=== PATIENT | male | born 1980 | race Caucasian/White ===

== ENCOUNTER 2016-10-03 17:58 | Inpatient (IN) | payer OTHER ==
[~2016-10-03] VITALS: Ht 175.3 cm; Wt 71.5 kg
[~2016-10-03 17:58] MED LIST: BLOOTES; CITA40 PO; CLON1 PO; LEVEMIR SQ; LISI5 PO; MICO TOP; NOVOLOGP2 SQ; QUET200 PO; insulin needles; insulin syringes
[2016-10-03 19:20] VITALS: BP 197/109; PULSE 121; RESP 22; TEMP 97.8; O2SAT 96
--- NOTE | 2016-10-03 19:23 | PD ---
HPI Chief Complaint: Psychiatric Symptoms Time Seen by Provider: 19:17 Travel History International Travel<30 days: No Contact w/Intl Traveler<30days: No Traveled to known affect area: No History of Present Illness HPI 36-year-old male that presents to the ED for evaluation of psychiatric illness. Patient has a history of schizo effective disorder and apparently his been off his medications and acting more bizarre patient apparently has his alterations as well. Patient does have a history of diabetes type 1. Takes insulin and he states that he is compliant with this. He does state that he doesn't take anything for his schizoaffective disorder. He denies any substance abuse other than alcohol. He denies any pain other than "mental pain. " Denies any chest pain or shortness of breath. Per patient he last used his insulin before coming here. Patient was Anderson acted by police. He states that his symptoms are moderate. He denies any other medical problems. No allergies to medication. He has been in this facility before. He does report being Anderson acted in the past. He denies any hallucinations at this time. No homicidal ideation. PFSH Past Medical History Anxiety: Yes Depression: Yes Cancer: No Cardiovascular Problems: No Diabetes: Yes (Per patient, reports Type II Diabetes) Diminished Hearing: No Headaches: Yes Hypertension: Yes Psychiatric: Yes (Inpatient, outpatient, diagnosis and psychotropic medication) Respiratory: Yes Seizures: No Social History Alcohol Use: Yes (OCCASIONAL) Tobacco Use: Yes (1PPD) Allergies-Medications (Allergen,Severity, Reaction): Coded Allergies: No Known Allergies (Unverified , 10/03/16) Reported Meds & Prescriptions Reported Meds & Active Scripts Active Review of Systems General / Constitutional: No: Fever, Chills, Weight Gain, Weight Loss, Other Eyes: No: Diploplia, Blurred Vision, Photophobia, Drainage, Redness, Foreign Body Sensation, Pain, Tearing, Blind Spots, Visual changes, Blindness, Other HENT: No: Headaches, Vertigo, Lightheadedness, Sore Throat, Rhinitis, Rhinorrhea, Congestion, Nosebleed, Neck Stiffness, Neck Pain, Masses, Gingival Bleeding, Dental Difficulties, Ear Discharge, Earache, Other Cardiovascular: No: Chest Pain or Discomfort, Palpitations, Irregular Rhythm, Tachycardia, Diaphoresis, Syncope, Dyspnea on exertion, Varicosities, Edema, Cyanosis, Varicosities, Phlebitis, Claudication, Other Respiratory: No: Cough, Shortness of Breath, Wheezing, Sneezing, Orthopnea, Hemoptysis, Stridor, Night Sweats, Pleuritic Pain, Other Gastrointestinal: No: Nausea, Vomiting, Diarrhea, Abdominal Pain, Hematemesis, Hematochezia, Constipation, Changes in Bowel Habits, Indigestion, Dysphagia, Loss of Appetite, Other Genitourinary: No: Urgency, Frequency, Dysuria, Nocturia, Hematuria, Decreased Urinary Output, Oliguria, Hesitancy, Dribbling, Incontinence, Pelvic Pain, Flank Pain, Dyspareunia, Discharge, Dysmenorrhea, Menorrhagia, Metorrhagia, Vaginal Bleeding, Other Musculoskeletal: No: Myalgias, Arthralgias, Limited ROM, Weakness, Cramping, Edema, Pain, Atrophy, Other Skin: No Rash, No Itching, No Dryness, No Lumps, No Hives, No Change in Pigmentation, No Change in nails, No Alopecia, No Lesions, No Breast Lumps, No Breast Tenderness, No Breast Swelling, No Other Neurologic: No: Weakness, Dizziness, Syncope, Focal Abnormalities, Coordination Problem, Tremor, Ataxia, Headache, Change in Mentation, Slurred Speech, Paresthesia, Incontinence, Seizures, Sensory Disturbance, Other Psychiatric: Positive: Depression, Suicidal Ideations, Mood Disorder, Substance Abuse, No: Anxiety, Disorder of Thought, Homicidal Ideation, Other Endocrine: No: Heat Intolerance, Cold Intolerance, Polyuria, Polydipsia, Other Hematologic/Lymphatic: No: Easy Bruising, Lymph Node Enlargement, Other Physical Exam Narrative GENERAL: SKIN: Warm and dry. HEAD: Atraumatic. Normocephalic. EYES: Pupils equal and round 4 mm reactive to light and accommodation. No scleral icterus. No injection or drainage. ENT: No nasal bleeding or discharge. Mucous membranes pink and moist. Tongue is midline. No uvula deviation. NECK: Trachea midline. No JVD. CARDIOVASCULAR: Regular rate and rhythm. No murmurs, S3, S4. RESPIRATORY: No accessory muscle use. Clear to auscultation. Breath sounds equal bilaterally. GASTROINTESTINAL: Abdomen soft, non-tender, nondistended. Hepatic and splenic margins not palpable. MUSCULOSKELETAL: Extremities without clubbing, cyanosis, or edema. No obvious deformities. Full range of motion of the upper and lower extremities bilaterally. 2+ pulses bilaterally. NEUROLOGICAL: Awake and alert. No obvious cranial nerve deficits. Motor grossly within normal limits. Five out of 5 muscle strength in the arms and legs. Normal speech. PSYCHIATRIC: anxious mood and affect; insight and judgment normal. Data Data Last Documented VS Vital Signs Date Time Temp Pulse Resp B/P Pulse Ox O2 Delivery O2 Flow Rate FiO2 10/03/16 19:20 97.8 121 22 197/109 96 Orders Complete Blood Count With Diff (10/03/16 19:04) Comprehensive Metabolic Panel (10/03/16 19:04) Psych Screen (10/03/16 19:) Drug Screen, Random Urine (10/03/16:) Alcohol (Ethanol) (10/03/16:) Labs Laboratory Tests Test 10/03/16: White Blood Count 7.6 TH/MM3 Red Blood Count 3.97 MIL/MM3 Hemoglobin 13.5 GM/DL Hematocrit 39.5 % Mean Corpuscular Volume 99.7 FL Mean Corpuscular Hemoglobin 34.1 PG Mean Corpuscular Hemoglobin 34.2 % Concent Red Cell Distribution Width 14.3 % Platelet Count 206 TH/MM3 Mean Platelet Volume 8.1 FL Neutrophils (%) (Auto) 77.5 % Lymphocytes (%) (Auto) 14.4 % Monocytes (%) (Auto) 6.2 % Eosinophils (%) (Auto) 0.8 % Basophils (%) (Auto) 1.1 % Neutrophils # (Auto) 5.9 TH/MM3 Lymphocytes # (Auto) 1.1 TH/MM3 Monocytes # (Auto) 0.5 TH/MM3 Eosinophils # (Auto) 0.1 TH/MM3 Basophils # (Auto) 0.1 TH/MM3 CBC Comment DIFF FINAL Differential Comment Sodium Level 135 MEQ/L Potassium Level 3.8 MEQ/L Chloride Level 97 MEQ/L Carbon Dioxide Level 27.3 MEQ/L Anion Gap 11 MEQ/L Blood Urea Nitrogen 12 MG/DL Creatinine 0.77 MG/DL Estimat Glomerular Filtration 114 ML/MIN Rate Random Glucose 244 MG/DL Calcium Level 9.1 MG/DL Total Bilirubin 0.4 MG/DL Aspartate Amino Transf 38 U/L (AST/SGOT) Alanine Aminotransferase 64 U/L (ALT/SGPT) Alkaline Phosphatase 66 U/L Total Protein 8.0 GM/DL Albumin 4.1 GM/DL Ethyl Alcohol Level LESS THAN 3 MG/DL MDM Medical Decision Making Medical Screen Exam Complete: Yes Emergency Medical Condition: Yes Medical Record Reviewed: Yes Interpretation(s) CBC & BMP Diagram 10/03/16 19:17 LFts WNL alcohol negative Differential Diagnosis Depression versus suicidal ideation versus anxiety versus adjustment disorder versus mood disorder versus bipolar disorder versus schizophrenia versus paranoid disorder versus psychosis versus substance abuse versus alcohol abuse versus alcohol induced psychosis versus homicidality addition versus cutting versus personality disorder Narrative Course 36-year-old male that presents to the ED for evaluation of psych. Patient was properly examined and was found to have signs and symptoms consistent with appears to be psychiatric illness. Labs ordered. Patient's blood sugar here is 230. I do not see any need for acute treatment at this time. Patient will be medically clear. Okay to be seen by psych. Mental health screening was discussed with the patient. Diagnosis Primary Impression: Schizoaffective disorder Qualified Code: F25.0 - Schizoaffective disorder, bipolar type Additional Impression: Diabetes type 1, controlled Qualified Code: E10.9 - Controlled diabetes mellitus type 1 without complications Ravi Santiago Oct 03, 2016 19:23
[2016-10-03 19:42] LABS: AUTOMATED NEUTROPHIL # 5.9 TH/MM3 (1.8-7.7); BASOPHIL # 0.1 TH/MM3 (0-0.2); BASOPHIL % 1.1 % (0.0-2.0); EOSINOPHIL # 0.1 TH/MM3 (0-0.4); EOSINOPHIL % 0.8 % (0.0-4.0); HEMATOCRIT 39.5 % (39.0-51.0); HEMO FLAGS DIFF FINAL; LYMPH % 14.4 % (9.0-44.0); LYMPHOCYTE # 1.1 TH/MM3 (1.0-4.8); MEAN CELL VOLUME 99.7 FL (80.0-100.0); MEAN CORPUSCULAR HEMOGLOBIN 34.1 PG (27.0-34.0); MEAN CORPUSCULAR HGB CONC 34.2 % (32.0-36.0); MONO % 6.2 % (0.0-8.0); NEUT % 77.5 % (16.0-70.0); PLATELET COUNT 206 TH/MM3 (150-450); RED BLOOD COUNT 3.97 MIL/MM3 (4.50-5.90); RED CELL DISTRIBUTION WIDTH 14.3 % (11.6-17.2); WHITE BLOOD COUNT 7.6 TH/MM3 (4.0-11.0)
[2016-10-03 19:53] LABS: ANION GAP 11 MEQ/L (5-15)
[2016-10-03 19:56] LABS: ALKALINE PHOSPHATASE 66 U/L (45-117); ALT (GPT) 64 U/L (12-78); AST (GOT) 38 U/L (15-37); BICARBONATE 27.3 MEQ/L (21.0-32.0); BLOOD UREA NITROGEN 12 MG/DL (7-18); CHLORIDE 97 MEQ/L (98-107); GLOMERULAR FILTRATION RATE 114 ML/MIN (>89); POTASSIUM 3.8 MEQ/L (3.5-5.1); SODIUM (NA) 135 MEQ/L (136-145); TOTAL BILIRUBIN ADULT 0.4 MG/DL (0.2-1.0)
[2016-10-03] MEDS: INSULIN NovoLIN REGULAR SUPPLEMENTAL SCALE SQ SCH (21:19)
[2016-10-03] MEDS ORDERED: LORazepam 1 MG TAB PO ONE (21:30)
[2016-10-03 22:06] VITALS: BP 209/120; PULSE 105; RESP 18; O2SAT 99
[2016-10-03] MEDS ORDERED: LISINOPRIL 10 MG TAB PO ONE (22:15)
[2016-10-03 22:50] VITALS: BP 170/90; PULSE 98; RESP 18; O2SAT 99
[2016-10-04] VITALS (7 sets, daily range): BP systolic 133–151; BP diastolic 60–102; PULSE 18–104; RESP 16–20; TEMP 97.4–98.8; O2SAT 97–98
[2016-10-04 00:17] LABS: AMPHETAMINE, URINE NEG (NEG); BARBITURATES, URINE NEG (NEG); COCAINE, URINE NEG (NEG)
[2016-10-04] MEDS ORDERED: IBUPROFEN 600 MG TAB PO ONE (01:00)
[2016-10-04] MEDS ORDERED: diphenhydrAMINE HCL 50 MG CAP PO ONE (01:00)
[2016-10-04] MEDS: INSULIN NovoLIN REGULAR SUPPLEMENTAL SCALE SQ SCH (06:50)
[2016-10-04] MEDS ORDERED: FLUMAZENIL 0.5 MG/5 ML VIAL IV PUSH PRN (08:30)
[2016-10-04] MEDS ORDERED: LORazepam 2 MG/ML VIAL IM PRN ×4 (08:30)
[2016-10-04] MEDS ORDERED: MAGNESIUM HYDROXIDE SUSP 30 ML CUP PO PRN (08:30)
[2016-10-04] MEDS ORDERED: ALUMINUM/MAGNESIUM/SIMETH 30 ML CUP PO PRN (08:30)
[2016-10-04] MEDS ORDERED: BENZTROPINE MESYLATE 1 MG TAB PO PRN (08:30)
[2016-10-04] MEDS ORDERED: ACETAMINOPHEN 325 MG TAB PO PRN (08:30)
[2016-10-04] MEDS ORDERED: BENZTROPINE MESYLATE 2 MG/2 ML VIAL IM PRN (08:30)
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
[2016-10-04] MEDS ORDERED: DEXTROSE 50% IN WATER 50 ML VIAL(D50) IV PUSH PRN (09:15)
[2016-10-04] MEDS ORDERED: GLUCAGON 1 MG/ML VIAL OTHER PRN (09:15)
[2016-10-04] MEDS: NICOTINE 21 MG/24 HR PATCH T-DERMAL SCH (10:27)
[2016-10-04] MEDS: GABAPENTIN 300 MG CAP PO SCH ×3 (10:27→17:59)
[2016-10-04] MEDS: THIAMINE HCL 100 MG TAB PO SCH (10:27)
[2016-10-04] MEDS: FOLIC ACID 1 MG TAB PO SCH (10:27)
[2016-10-04] MEDS: INSULIN ASPART SUPPLEMENTAL SCALE SQ SCH ×3 (11:00→20:26)
[2016-10-04] MEDS ORDERED: cloNIDine HCL 0.1 MG TAB PO PRN (11:45)
[2016-10-04] MEDS: LORazepam 1 MG TAB PO PRN ×2 (11:55→17:59)
--- NOTE | 2016-10-04 13:54 | HHI.PR ---
Subjective Remarks This is a 36-year-old white male with a history of is independent diabetes mellitus, hypertension who states that he cannot afford long-acting basal insulin and is only using [id number] regular insulin was recently admitted to inpatient psychiatric unit for acute exacerbation of schizoaffective disorder and depression. He states that he was thinking about cutting his wrists with box cutters however did not follow through with this. He reports no active suicidal ideations at this time. He states that he is ran out his lisinopril 10 mg by mouth daily for his blood pressure for the past few months. He states that he is not compliant with taking basal insulin. In addition he is complaining of scrotal rash and itchiness and discomfort and wanted me to evaluate the area. He denies any nausea or vomiting. He reports not being sexually active for the past few months. He denies any penile drainage. He denies any recent chills or fever. Objective Vitals Vital Signs Date Time Temp Pulse Resp B/P Pulse Ox O2 Delivery O2 Flow Rate FiO2 10/04/16 11:38 98.4 100 20 147/93 97 10/04/16 10:51 78 151/102 Room Air 10/04/16 10:50 18 151/102 Room Air 10/04/16 06:11 97.4 59 18 135/79 97 Room Air 10/04/16 02:05 97.4 75 18 149/76 97 Room Air 10/03/16 22:50 98 18 170/90 99 Room Air 10/03/16 22:06 105 18 209/120 99 Room Air 10/03/16 19:20 97.8 121 22 197/109 96 Result Diagram: 10/03/16191610/03/161916 Unique Cornelius Oct 04, 2016 13:54
--- NOTE | 2016-10-04 16:32 | PD.CONS ---
HPI Service [facility] Consult Requested By Psychiatric services Reason for Consult Medical management patient with diabetes mellitus Primary Care Physician No Primary Care Physician Diagnoses: History of Present Illness This is a 34-year-old male patient with past medical history which includes hypertension, diabetes mellitus. Patient is currently an inpatient psychiatric unit we were consulted for assistance with medical management including diabetes mellitus. Patient reports he has not had any insulin since his right to the hospital current blood glucose 390. Patient reports he normally takes Lantus 15 units twice a day and is addition to short-acting sliding-scale coverage. Patient denies shortness of breath chest pain nausea vomiting diarrhea constipation fevers chills cough or congestion. Patient is alert and oriented 3 ambulating about unit and appears to be stable. Review of Systems Except as stated in HPI: all other systems reviewed are Neg Past Family Social History Allergies: Coded Allergies: No Known Allergies (Unverified , 10/03/16) Past Medical History Hypertension Diabetes mellitus Past Surgical History None Reported Medications Lantus 15 units twice a day Novolin R sliding scale Active Ordered Medications Current Medications Medications (Trade) Dose Ordered Sig/Joyce Route Start Time Stop Time Status Last Admin (Benadryl) 50 mg HS PRN PO 10/04/16 08:30 (Tylenol) 650 mg Q4H PRN PO 10/04/16 08:30 (Milk Of Magnesia Liq) 30 ml DAILY PRN PO 10/04/16 08:30 (Mag-Al Plus Susp Liq) 30 ml Q6H PRN PO 10/04/16 08:30 (Habitrol 21 Mg Patch.24 Hr) 1 patch DAILY T-DERMAL 10/04/16 09:00 10/04/16 10:27 (Atarax) 50 mg Q6H PRN PO 10/04/16 08:30 (Cogentin) 1 mg Q12H PRN PO 10/04/16 08:30 (Cogentin Inj) 1 mg Q12H PRN IM 10/04/16 08:30 (Romazicon Inj) 0.2 mg Q1M PRN IV PUSH 10/04/16 08:30 (Ativan) 1 mg Q4H PRN PO 10/04/16 08:30 10/04/16 11:55 (Ativan Inj) 1 mg Q4H PRN IM 10/04/16 08:30 (Ativan) 2 mg Q2H PRN PO 10/04/16 08:30 (Ativan Inj) 2 mg Q2H PRN IM 10/04/16 08:30 (Ativan Inj) 2 mg Q1H PRN IM 10/04/16 08:30 (Ativan Inj) 2 mg Q15M PRN IM 10/04/16 08:30 Miscellaneous Information 1 DAILY T-DERMAL 10/05/16 09:00 (Vitamin B1) 100 mg DAILY PO 10/04/16 09:00 10/04/16 10:27 (Folate) 1 mg DAILY PO 10/04/16 09:00 10/04/16 10:27 (Neurontin) 300 mg TID PO 10/04/16 09:00 10/04/16 11:55 (D50w (Vial) Inj) 25 ml UNSCH PRN IV PUSH 10/04/16 09:15 (Glucagon Inj) 1 mg UNSCH PRN OTHER 10/04/16 09:15 (Prinivil) 10 mg DAILY PO 10/05/16 09:00 (Catapres) 0.1 mg Q6H PRN PO 10/04/16 11:45 (Levemir Inj) 15 units Q12HR SQ 10/04/16 21:00 Family History Father had diabetes Social History Reports smoking approximately 2 packs of cigarettes per day Reports he drinks proximally 1 pint of alcohol per day Physical Exam Vital Signs Vital Signs Date Time Temp Pulse Resp B/P Pulse Ox O2 Delivery O2 Flow Rate FiO2 10/04/16 11:38 98.4 100 20 147/93 97 10/04/16 10:51 78 151/102 Room Air 10/04/16 10:50 18 151/102 Room Air 10/04/16 06:11 97.4 59 18 135/79 97 Room Air 10/04/16 02:05 97.4 75 18 149/76 97 Room Air 10/03/16 22:50 98 18 170/90 99 Room Air 10/03/16 22:06 105 18 209/120 99 Room Air 10/03/16 19:20 97.8 121 22 197/109 96 Physical Exam GENERAL: This is a well-nourished, well-developed patient, in no apparent distress. SKIN: Warm and dry HEAD: Atraumatic. Normocephalic. No temporal or scalp tenderness. EYES: Extraocular motions intact. No scleral icterus. No injection or drainage. CARDIOVASCULAR: Regular rate and rhythm without murmurs, gallops, or rubs. RESPIRATORY: Clear to auscultation. Breath sounds equal bilaterally. No wheezes , rales, or rhonchi. GASTROINTESTINAL: Abdomen soft, non-tender, nondistended. No hepato-splenomegaly , or palpable masses. No guarding. Normoactive bowel sounds MUSCULOSKELETAL: Extremities without clubbing, cyanosis, or edema. No joint tenderness, effusion, or edema noted. NEUROLOGICAL: Awake and alert. No focal deficits identified. Motor and sensory grossly within normal limits. Five out of 5 muscle strength in all muscle groups. Normal speech. Laboratory Laboratory Tests Test 10/03/16 10/03/16 19:17 23:45 White Blood Count 7.6 Red Blood Count 3.97 Hemoglobin 13.5 Hematocrit 39.5 Mean Corpuscular Volume 99.7 Mean Corpuscular Hemoglobin 34.1 Mean Corpuscular Hemoglobin 34.2 Concent Red Cell Distribution Width 14.3 Platelet Count 206 Mean Platelet Volume 8.1 Neutrophils (%) (Auto) 77.5 Lymphocytes (%) (Auto) 14.4 Monocytes (%) (Auto) 6.2 Eosinophils (%) (Auto) 0.8 Basophils (%) (Auto) 1.1 Neutrophils # (Auto) 5.9 Lymphocytes # (Auto) 1.1 Monocytes # (Auto) 0.5 Eosinophils # (Auto) 0.1 Basophils # (Auto) 0.1 CBC Comment DIFF FINAL Differential Comment Sodium Level 135 Potassium Level 3.8 Chloride Level 97 Carbon Dioxide Level 27.3 Anion Gap 11 Blood Urea Nitrogen 12 Creatinine 0.77 Estimat Glomerular Filtration 114 Rate Random Glucose 244 Calcium Level 9.1 Total Bilirubin 0.4 Aspartate Amino Transf 38 (AST/SGOT) Alanine Aminotransferase 64 (ALT/SGPT) Alkaline Phosphatase 66 Total Protein 8.0 Albumin 4.1 Ethyl Alcohol Level LESS THAN 3 Urine Opiates Screen NEG Urine Barbiturates Screen NEG Urine Amphetamines Screen NEG Urine Benzodiazepines Screen NEG Urine Cocaine Screen NEG Urine Cannabinoids Screen POS Result Diagram: 10/03/16191610/03/161916 Assessment and Plan Assessment and Plan This is a 34-year-old male patient with past medical history which includes hypertension, diabetes mellitus. Patient is currently an inpatient psychiatric unit we were consulted for assistance with medical management including diabetes mellitus. Patient reports he has not had any insulin since his right to the hospital current blood glucose 390. Schizoaffective disorder with depressiontreatment per psychiatry Hypertension,patient continue lisinopril 10 mg by mouth daily; will monitor blood pressure trends for further recommendations. Diabetes mellitus, uncontrolled- add Levemir 15 units twice a day continue to monitor Accu-Cheks before meals at bedtime with sliding scale insulin coverage. Recheck BMP in a.m. Encourage oral hydration Tobacco abuse, cessation counseling. nicotinic patch DVT prophylaxisEncouraged ambulation. Thank you for the consultation and for allowing us to participate in the care of this patient we will follow along with you. Discussed plan of care with patient, RN and Dr. Garner . Discussed Condition With The exam, history, and the medical decision-making described in the above note were completed with the assistance of the mid-level provider. I reviewed and agree with the findings presented. I attest that I had a [id number] encounter with the patient on the same day, and personally performed and documented my assessment and findings in the medical record. Unique Cornelius Oct 04, 2016 16:32 Rashaad Garner MD Oct 13, 2016 14:17
[2016-10-04] MEDS: INSULIN DETEMIR 100 UNITS/ML VIAL SQ SCH (20:26)
[2016-10-04] MEDS: LORazepam 2 MG TAB PO PRN (20:27)
[2016-10-04] MEDS: diphenhydrAMINE HCL 50 MG CAP PO PRN (20:27)
[2016-10-05] MEDS: LORazepam 2 MG TAB PO PRN ×3 (05:03→15:33)
[2016-10-05 05:43] VITALS: BP 127/89; PULSE 103; RESP 17; TEMP 97.5; O2SAT 100
[2016-10-05] MEDS: INSULIN ASPART SUPPLEMENTAL SCALE SQ SCH ×4 (06:11→20:28)
[2016-10-05 07:39] LABS: ANION GAP 8 MEQ/L (5-15); BICARBONATE 26.6 MEQ/L (21.0-32.0); BLOOD UREA NITROGEN 19 MG/DL (7-18); CHLORIDE 103 MEQ/L (98-107); GLOMERULAR FILTRATION RATE 107 ML/MIN (>89); POTASSIUM 3.8 MEQ/L (3.5-5.1); SODIUM (NA) 138 MEQ/L (136-145)
[2016-10-05 07:47] LABS: LDL CHOLESTEROL 143 MG/DL (0-99)
[2016-10-05 09:00] VITALS: BP 148/98; PULSE 102; RESP 19; O2SAT 99
[2016-10-05] MEDS: INSULIN DETEMIR 100 UNITS/ML VIAL SQ SCH ×2 (09:00→20:28)
[2016-10-05] MEDS: REMOVE OLD PATCH T-DERMAL SCH (09:00)
[2016-10-05] MEDS: NICOTINE 21 MG/24 HR PATCH T-DERMAL SCH (09:00)
[2016-10-05 09:04] LABS: HEMOGLOBIN A1a 1.2 %; HEMOGLOBIN A1b 0.8 %; HEMOGLOBIN Ao 80.3 %; HEMOGLOBIN F 1.6 %; HEMOGLOBIN LA1C 2.1 %; HEMOGLOBIN P3 4.5 %
[2016-10-05] MEDS: THIAMINE HCL 100 MG TAB PO SCH (09:18)
[2016-10-05] MEDS: FOLIC ACID 1 MG TAB PO SCH (09:18)
[2016-10-05] MEDS: LISINOPRIL 10 MG TAB PO SCH (09:19)
[2016-10-05] MEDS: GABAPENTIN 300 MG CAP PO SCH ×3 (09:19→17:30)
[2016-10-05 13:13] VITALS: BP 138/75; PULSE 100; RESP 17; O2SAT 97
--- NOTE | 2016-10-05 14:39 | HHI.PYPN ---
Subjective Remarks Patient was seen and case discussed with nursing. Patient is alert and oriented 4, no auditory visual hallucinations, no nausea or vomiting, very mild tremors, and blood pressure slightly elevated. Patient's is asking for Klonopin and psychoeducation was done concerning his current detox with Ativan contraindication to outpatient benzodiazepines given his history of alcohol abuse. Patient admits to having thoughts of killing his roommate before admission but has no plans to hurt her because he never wants to see her again. Saying he had suicidal thoughts where he wanted to bleed on the floor to spite his roommate. Patient is mildly irritable and anxious. He does seem to want to make a change in his life and get off the alcohol. His compliant with his medications and behaving well on the unit Objective Alert: Yes [place]: Person, Place, Date, Situation Mood: Depressed Affect: Restricted Memory Intact: Immediate Hallucinations: Other Delusions: No Delusion Type: Other Suicidal: Ideation (denies) Homicidal: Ideation (denies) Insight/Judgement Poor Labs Test 10/05/16 06:41 Sodium Level 138 MEQ/L Potassium Level 3.8 MEQ/L Chloride Level 103 MEQ/L Carbon Dioxide Level 26.6 MEQ/L Anion Gap 8 MEQ/L Blood Urea Nitrogen 19 MG/DL Creatinine 0.81 MG/DL Estimat Glomerular Filtration 107 ML/MIN Rate Random Glucose 96 MG/DL Hemoglobin A1c 9.1 % Calcium Level 8.9 MG/DL Triglycerides Level 80 MG/DL Cholesterol Level 240 MG/DL LDL Cholesterol 143 MG/DL HDL Cholesterol 81.0 MG/DL Cholesterol/HDL Ratio 2.96 RATIO Vitals/IOs Vital Signs Date Time Temp Pulse Resp B/P Pulse Ox O2 Delivery O2 Flow Rate FiO2 10/05/16 13:13 100 17 138/75 97 10/05/16 05:43 97.5 10/04/16 10:51 Room Air Assessment & Plan Problem List: (1) Adjustment disorder with mixed disturbance of emotions and conduct ICD Code: F43.25 Assessment & Plan Continue alcohol detox protocol at current levels. Continue current treatment plan Justification for Cont. Inpt. Patient will decompensate in a less restrictive setting Request HC Surrog/Guard Advoc?: No Dirk Talamantes DO Oct 05, 2016 14:39
[2016-10-05 16:00] VITALS: BP 157/89; PULSE 103
[2016-10-05] MEDS ORDERED: INSULIN ASPART 1,000 UNITS/10 ML VIAL SQ SCH (17:00)
[2016-10-05] MEDS: INSULIN ASPART 1,000 UNITS/10 ML VIAL SQ SCH (17:30)
[2016-10-05 19:35] VITALS: BP 128/76; PULSE 98; RESP 18; TEMP 97.4; O2SAT 99
[2016-10-05] MEDS: LORazepam 1 MG TAB PO PRN (20:24)
[2016-10-05] MEDS: diphenhydrAMINE HCL 50 MG CAP PO PRN (20:27)
[2016-10-05 22:15] VITALS: BP 152/92; PULSE 115; RESP 18; O2SAT 100
[2016-10-06] MEDS: LORazepam 1 MG TAB PO PRN ×5 (01:33→21:48)
[2016-10-06 05:27] VITALS: BP 134/91; PULSE 93; RESP 18; TEMP 97.2; O2SAT 98
[2016-10-06] MEDS: INSULIN ASPART SUPPLEMENTAL SCALE SQ SCH ×4 (05:38→20:27)
[2016-10-06] MEDS: FOLIC ACID 1 MG TAB PO SCH (08:51)
[2016-10-06] MEDS: THIAMINE HCL 100 MG TAB PO SCH (08:51)
[2016-10-06] MEDS: INSULIN DETEMIR 100 UNITS/ML VIAL SQ SCH ×2 (08:51→20:28)
[2016-10-06] MEDS: LISINOPRIL 10 MG TAB PO SCH (08:51)
[2016-10-06] MEDS: NICOTINE 21 MG/24 HR PATCH T-DERMAL SCH (08:52)
[2016-10-06] MEDS: INSULIN ASPART 1,000 UNITS/10 ML VIAL SQ SCH ×3 (08:53→17:14)
[2016-10-06] MEDS: REMOVE OLD PATCH T-DERMAL SCH (08:54)
[2016-10-06] MEDS: GABAPENTIN 300 MG CAP PO SCH ×3 (08:54→17:13)
--- NOTE | 2016-10-06 13:37 | HHI.PR ---
Subjective Remarks Follow-up hypertension, diabetes mellitus. Patient's glucose yesterday evening before bed 105 patient's glucose this a.m. 331. Patient reports he had , "a lot of snacks, "through the night. Patient denies shortness of breath chest pain nausea vomiting diarrhea constipation fevers chills cough or congestion. Objective Vitals Vital Signs Date Time Temp Pulse Resp B/P Pulse Ox O2 Delivery O2 Flow Rate FiO2 10/06/16 05:27 97.2 93 18 134/91 98 10/05/16 19:35 97.4 98 18 128/76 99 10/05/16 16:00 103 157/89 Result Diagram: 10/03/167 10/05/16 0641 Objective Remarks GENERAL: This is a well-nourished, well-developed patient, in no apparent distress. SKIN: Warm and dry HEAD: Atraumatic. Normocephalic. No temporal or scalp tenderness. EYES: Extraocular motions intact. No scleral icterus. No injection or drainage. CARDIOVASCULAR: Regular rate and rhythm without murmurs, gallops, or rubs. RESPIRATORY: Clear to auscultation. Breath sounds equal bilaterally. No wheezes , rales, or rhonchi. GASTROINTESTINAL: Abdomen soft, non-tender, nondistended. No hepato-splenomegaly , or palpable masses. No guarding. Normoactive bowel sounds MUSCULOSKELETAL: Extremities without clubbing, cyanosis, or edema. No joint tenderness, effusion, or edema noted. NEUROLOGICAL: Awake and alert. No focal deficits identified. Motor and sensory grossly within normal limits. Five out of 5 muscle strength in all muscle groups. Normal speech. A/P Assessment and Plan This is a 34-year-old male patient with past medical history which includes hypertension, diabetes mellitus. Patient is currently an inpatient psychiatric unit we were consulted for assistance with medical management including diabetes mellitus. Patient reports he has not had any insulin since his right to the hospital current blood glucose 390. Schizoaffective disorder with depressiontreatment per psychiatry Hypertension, improved continue lisinopril 10 mg by mouth daily; will monitor blood pressure trends for further recommendations. Diabetes mellitus, uncontrolled- Patient counseled on proper diabetic diet eating regularly scheduled meals Hemoglobin A1c 9.1 Continue Levemir 15 units twice a day continue to monitor Accu-Cheks before meals at bedtime with sliding scale insulin coverage. Encourage oral hydration Tobacco abuse, cessation counseling. nicotinic patch DVT prophylaxispatient ambulatory Discussed plan of care with patient, RN Written by Unique Cornelius, acting as scribe for Dr. Jimenez on 10/06/16 at 13:36. The documentation accurately reflects the work performed [id number] by me on at 16:47. Unique Cornelius Oct 06, 2016 13:36 Jay Jimenez MD Oct 06, 2016 16:47
--- NOTE | 2016-10-06 14:24 | HHI.PYPN ---
Subjective Remarks Patient seen and examined. Chart reviewed. Patient has received 6 mg of Ativan per CIWA in the last 24 hours. Case discussed with nursing staff who reports patient is quite medication seeking for additional benzodiazepines. I see this was an issue with Dr. Talamantes over the weekend as well. On my examination today, the patient remains extremely benzodiazepine seeking. He says that Klonopin is "the only thing that helps" with his anxiety. I explained that the mainstay of treatment for anxiety disorders from a pharmacologic standpoint is in a serotonergic antidepressant but the patient says that he has tried these before and isn't interested in giving them a try now. He reports he is eating and sleeping well. Denies suicidal or homicidal ideation. In particular denies any urge to injure his landlord and notes that he is "done with her" in the sense of wanting nothing more to do with her. I have reinforced that he is receiving Ativan as needed for withdrawal, but nonetheless the patient comes up to me later has I am making rounds on other patients to ask if I can prescribe him some Ativan for anxiety. Denies side effects from medications. Review of Systems Other Complains of some subjective shakes but otherwise no somatic complaints. Objective Alert: Yes [place]: Person (oriented 3. No evidence of delirium) Mood: Anxious Affect: Blunted Memory Intact: Comment (intact on clinical exam) Hallucinations: Other (no AVH) Delusions: No Delusion Type: Other (no delusions) Suicidal: Ideation (denies suicidal ideation) Homicidal: Ideation (denies homicidal ideation) Insight/Judgement Fair Remarks No abnormal motor movements noted. No hand tremor, no diaphoresis, no mydriasis noted. Speech within normal limits for rate, tone and volume. Thought process linear. Labs Labs reviewed. No new labs. Vitals/IOs Vital Signs Date Time Temp Pulse Resp B/P Pulse Ox O2 Delivery O2 Flow Rate FiO2 10/06/16 05:27 97.2 93 18 134/91 98 10/04/16 10:51 Room Air Assessment & Plan Problem List: (1) Adjustment disorder with mixed disturbance of emotions and conduct Assessment & Plan: Rule out malingering for benzodiazepines ICD Code: F43.25 Assessment & Plan Titrate gabapentin to target ongoing anxiety. Continue CIWA with Ativan for any withdrawal. Continue other medications and care as ordered. Justification for Cont. Inpt. Medication changes Discharge Planning Anticipate discharge middle of the week. Request HC Surrog/Guard Advoc?: No Ramon Duran MD Oct 06, 2016 14:24
[2016-10-06 17:44] VITALS: BP 135/73; PULSE 106; RESP 18; TEMP 98.1; O2SAT 97
[2016-10-06] MEDS: diphenhydrAMINE HCL 50 MG CAP PO PRN (20:33)
[2016-10-07] MEDS: LORazepam 1 MG TAB PO PRN ×2 (03:24→20:16)
[2016-10-07 05:20] VITALS: BP 137/99; PULSE 99; RESP 18; TEMP 97.4; O2SAT 99
[2016-10-07] MEDS: INSULIN ASPART SUPPLEMENTAL SCALE SQ SCH ×4 (06:26→20:54)
[2016-10-07] MEDS: REMOVE OLD PATCH T-DERMAL SCH (09:00)
[2016-10-07] MEDS: INSULIN DETEMIR 100 UNITS/ML VIAL SQ SCH ×2 (09:17→20:16)
[2016-10-07] MEDS: FOLIC ACID 1 MG TAB PO SCH (09:17)
[2016-10-07] MEDS: INSULIN ASPART 1,000 UNITS/10 ML VIAL SQ SCH ×3 (09:17→15:29)
[2016-10-07] MEDS: THIAMINE HCL 100 MG TAB PO SCH (09:17)
[2016-10-07] MEDS: NICOTINE 21 MG/24 HR PATCH T-DERMAL SCH (09:17)
[2016-10-07] MEDS: LISINOPRIL 10 MG TAB PO SCH (09:17)
[2016-10-07] MEDS: GABAPENTIN 300 MG CAP PO SCH ×4 (09:18→20:14)
--- NOTE | 2016-10-07 10:56 | HHI.PR ---
Subjective Remarks Follow-up hypertension, diabetes mellitus. Patient seen today. Patient's glucose continues to be labile. As per RN, patient ate another patient's tray. Reported blood glucose 434. Patient was given 5 prandial insulin, 12 units sliding scale insulin. Patient states he is doing well. Denies pain and discomfort. Denies SOB/ dyspnea. Denies chest pain, palpitations, headaches, dizziness. Denies fevers, chills, n/v/d. Objective Vitals Vital Signs Date Time Temp Pulse Resp B/P Pulse Ox O2 Delivery O2 Flow Rate FiO2 10/07/16 05:20 97.4 99 18 137/99 99 10/06/16 17:44 98.1 106 18 135/73 97 Result Diagram: 10/03/16191610/05/16 0641 Objective Remarks GENERAL: This is a well-nourished, well-developed patient, in no apparent distress. SKIN: Warm and dry HEAD: Atraumatic. Normocephalic. No temporal or scalp tenderness. EYES: Extraocular motions intact. No scleral icterus. No injection or drainage. CARDIOVASCULAR: Regular rate and rhythm without murmurs, gallops, or rubs. RESPIRATORY: Clear to auscultation. Breath sounds equal bilaterally. No wheezes , rales, or rhonchi. GASTROINTESTINAL: Abdomen soft, non-tender, nondistended. No guarding. Normoactive bowel sounds MUSCULOSKELETAL: Extremities without clubbing, cyanosis, or edema. No joint tenderness, effusion, or edema noted. NEUROLOGICAL: Awake and alert. No focal deficits identified. Motor and sensory grossly within normal limits. Five out of 5 muscle strength in all muscle groups. Normal speech. A/P Problem List: (1) Diabetes type 1, controlled ICD Code: E10.9 Status: Acute (2) Adjustment disorder with mixed disturbance of emotions and conduct ICD Code: F43.25 Status: Acute (3) Polysubstance abuse ICD Code: F19.10 Status: Acute Assessment and Plan This is a 34-year-old male patient with past medical history which includes hypertension, diabetes mellitus. Patient is currently an inpatient psychiatric unit we were consulted for assistance with medical management including diabetes mellitus. Patient reports he has not had any insulin since his right to the hospital current blood glucose 390. Schizoaffective disorder with depressiontreatment per psychiatry Hypertension improved increase lisinopril 20 mg by mouth daily; will monitor blood pressure trends for further recommendations. ASCVD risk - 69% calculated lifetime risk - recommend lifestyle change, low cholesterol diet Diabetes mellitus, uncontrolled - unable to comply with diet - Patient counseled on proper diabetic diet eating regularly scheduled meals. - Hemoglobin A1c 9.1 - Continue 5 units prandial insulin. - Continue Levemir 15 units twice a day continue to monitor Accu-Cheks before meals at bedtime with sliding scale insulin coverage. - Encourage oral hydration Tobacco abuse, cessation counseling. nicotinic patch DVT prophylaxispatient ambulatory Written by Gregoria Colon, acting as scribe for Dr. Jimenez on 10/07/16 at 12: 04. The documentation accurately reflects the work performed [id number] by me on at 19:22. Problem Qualifiers (1) Diabetes type 1, controlled: Qualified Code: E10.9 - Controlled diabetes mellitus type 1 without complications Gregoria Tapia Oct 07, 2016 10:56 Jay Jimenez MD Oct 07, 2016 19:22
--- NOTE | 2016-10-07 12:21 | HHI.PYPN ---
Subjective Remarks Patient seen and examined with counselor nursing staff in treatment team. Chart reviewed. Case discussed with counselor, nursing staff and occupational therapist. Per nursing staff patient is quite medication seeking for benzodiazepines. Per counselor, patient refused assistance with referral for outpatient chemical dependency resources. Occupational therapist reports that the patient goes out for fresh air. On my examination today, patient seems objectively calmer but continues to report high anxiety. He uses this as a springboard to resume seeking for benzodiazepines. He insists that "Klonopin is the only thing that works for me." He issues availed threat that if I don't provide him with Klonopin "my anxiety builds up too much and then I snap." He does not describe any suicidal or homicidal ideation at this time. He does feel like the gabapentin is helping" a little bit." He admits that he has made no effort to review possible discharge planning options provided to him by the counselor, and I encourage him to do so now. Denies side effects from medications. Review of Systems Other No reported somatic complaints Objective Alert: Yes [place]: Person (once again oriented 3) Mood: Anxious (subjectively anxious) Affect: Other (objectively calm with no anxiety) Memory Intact: Comment (intact on clinical exam) Hallucinations: Other (no AVH) Delusions: No Delusion Type: Other (no evident delusions) Suicidal: Ideation (no suicidal ideation) Homicidal: Ideation (no homicidal ideation) Insight/Judgement Fair Remarks No abnormal motor movements noted. No signs of withdrawal noted. CIWA scores have been downtrending. Thought processes linear. Labs Labs reviewed. Vitals/IOs Vital Signs Date Time Temp Pulse Resp B/P Pulse Ox O2 Delivery O2 Flow Rate FiO2 10/07/16 05:20 97.4 99 18 137/99 99 10/04/16 10:51 Room Air Assessment & Plan Problem List: (1) Adjustment disorder with mixed disturbance of emotions and conduct ICD Code: F43.25 (2) Polysubstance abuse ICD Code: F19.10 Assessment & Plan Antisocial and malingering/medication seeking features of patient's case are becoming more and more prominent. I will continue to titrate patient's gabapentin to try to target anxiety. I have reiterated that I will not be providing him with a scheduled benzodiazepine given his substance use issues. He then paces around the unit angrily and pretends like he is going to throw a chair. Monitor another 24 hours then d/c CIWA. Continue other medications and care as ordered. Justification for Cont. Inpt. Monitoring for safety. Medication changes in process. Discharge Planning Anticipate discharge by the end of the week. Request HC Surrog/Guard Advoc?: No Ramon Duran MD Oct 07, 2016 12:21
[2016-10-07] MEDS: hydrOXYzine HCL 50 MG TAB PO PRN ×2 (12:36→18:15)
[2016-10-07 15:40] VITALS: BP 134/96; PULSE 107
[2016-10-07] MEDS: diphenhydrAMINE HCL 50 MG CAP PO PRN (20:55)
[2016-10-08] MEDS: hydrOXYzine HCL 50 MG TAB PO PRN ×4 (00:22→23:05)
[2016-10-08] MEDS: LORazepam 1 MG TAB PO PRN (04:13)
[2016-10-08] MEDS: NICOTINE 21 MG/24 HR PATCH T-DERMAL SCH ×2 (04:13→09:04)
[2016-10-08 06:01] VITALS: BP 138/65; PULSE 93; RESP 18; TEMP 98.2; O2SAT 99
[2016-10-08] MEDS: INSULIN ASPART SUPPLEMENTAL SCALE SQ SCH ×4 (06:23→21:00)
[2016-10-08] MEDS: INSULIN ASPART 1,000 UNITS/10 ML VIAL SQ SCH ×3 (08:00→16:15)
[2016-10-08] MEDS: LISINOPRIL 20 MG TAB PO SCH (09:00)
[2016-10-08] MEDS: REMOVE OLD PATCH T-DERMAL SCH (09:00)
[2016-10-08] MEDS: INSULIN DETEMIR 100 UNITS/ML VIAL SQ SCH ×2 (09:00→21:00)
[2016-10-08] MEDS: THIAMINE HCL 100 MG TAB PO SCH (09:00)
[2016-10-08] MEDS: GABAPENTIN 300 MG CAP PO SCH ×4 (09:05→21:18)
[2016-10-08] MEDS: FOLIC ACID 1 MG TAB PO SCH (09:05)
--- NOTE | 2016-10-08 09:47 | HHI.PYPN ---
Subjective Remarks Patient seen and examined with counselor nursing staff. Per nursing staff, patient is quite entitled. CIWA<8 for over 24 hours. I do see he has gotten a small amount of Ativan despite not scoring by CIWA. On my examination today, the patient is somewhat sarcastic. He says that he is clear minded and says that we have "done all you can." He remains extremely medication seeking for Klonopin. He denies any suicidal or homicidal ideation. In particular denies homicidal ideation against landlord. He feels like the gabapentin is helping him and says that he has "feelings of goodness" from it. Denies side effects from medications. Review of Systems Other No somatic complaints today Objective Alert: Yes [place]: Person (oriented 3. No evidence of delirium.) Mood: Anxious (reports mild subjective anxiety) Affect: Other (no objective anxiety) Memory Intact: Comment (remains intact) Hallucinations: Other (none) Delusions: No Delusion Type: Other (no delusions) Suicidal: Ideation (denies suicidal ideation) Homicidal: Ideation (denies homicidal ideation) Insight/Judgement Fair Remarks No abnormal motor movements noted. No signs of withdrawal noted. Thought process linear. Labs Labs reviewed. No new labs. Vitals/IOs Vital Signs Date Time Temp Pulse Resp B/P Pulse Ox O2 Delivery O2 Flow Rate FiO2 10/08/16 06:01 98.2 93 18 138/65 99 10/04/16 10:51 Room Air Assessment & Plan Problem List: (1) Adjustment disorder with mixed disturbance of emotions and conduct ICD Code: F43.25 (2) Polysubstance abuse ICD Code: F19.10 Assessment & Plan Continue gabapentin as ordered. Discontinue CIWA Ativan. Continue other medications and care as ordered. Justification for Cont. Inpt. Final discharge planning. Discharge Planning Anticipate discharge later today or tomorrow at the latest. Request HC Surrog/Guard Advoc?: No Ramon Duran MD Oct 08, 2016 09:47
[2016-10-08 19:53] VITALS: BP 133/85; PULSE 98; RESP 16; TEMP 97.8; O2SAT 97
[2016-10-08] MEDS: diphenhydrAMINE HCL 50 MG CAP PO PRN (22:00)
[2016-10-09 05:46] VITALS: BP 136/79; PULSE 97; RESP 18; TEMP 98.1; O2SAT 98
[2016-10-09] MEDS: INSULIN ASPART SUPPLEMENTAL SCALE SQ SCH ×2 (06:09→11:00)
[2016-10-09] MEDS: INSULIN ASPART 1,000 UNITS/10 ML VIAL SQ SCH ×2 (08:00→11:18)
[2016-10-09] MEDS: THIAMINE HCL 100 MG TAB PO SCH (08:26)
[2016-10-09] MEDS: FOLIC ACID 1 MG TAB PO SCH (08:27)
[2016-10-09] MEDS: LISINOPRIL 20 MG TAB PO SCH (08:27)
[2016-10-09] MEDS: GABAPENTIN 300 MG CAP PO SCH ×3 (08:27→16:05)
[2016-10-09] MEDS ORDERED: INSULIN DETEMIR 100 UNITS/ML VIAL SQ SCH (09:00)
[2016-10-09] MEDS: REMOVE OLD PATCH T-DERMAL SCH (09:00)
[2016-10-09] MEDS ORDERED: NEUR300C PO (11:59)
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
--- NOTE | 2016-10-09 15:12 | HHI.PR ---
Subjective Remarks Follow-up hypertension, diabetes mellitus. Patient seen today. Patient's glucose continues to uncontrolled. Patient states he is doing well. Discuss importance of compliance with diet and medication. Denies pain and discomfort. Denies SOB/ dyspnea. Denies chest pain, palpitations, headaches, dizziness. Denies fevers, chills, n/v/d. Objective Vitals Vital Signs Date Time Temp Pulse Resp B/P Pulse Ox O2 Delivery O2 Flow Rate FiO2 10/09/16 05:46 98.1 97 18 136/79 98 10/08/16 19:53 97.8 98 16 133/85 97 Result Diagram: 10/05/16 0641 Objective Remarks GENERAL: This is a well-nourished, well-developed patient, in no apparent distress. SKIN: Warm and dry HEAD: Atraumatic. Normocephalic. No temporal or scalp tenderness. EYES: Extraocular motions intact. No scleral icterus. No injection or drainage. CARDIOVASCULAR: Regular rate and rhythm without murmurs, gallops, or rubs. RESPIRATORY: Clear to auscultation. Breath sounds equal bilaterally. No wheezes , rales, or rhonchi. GASTROINTESTINAL: Abdomen soft, non-tender, nondistended. No hepato-splenomegaly , or palpable masses. No guarding. Normoactive bowel sounds MUSCULOSKELETAL: Extremities without clubbing, cyanosis, or edema. No joint tenderness, effusion, or edema noted. NEUROLOGICAL: Awake and alert. No focal deficits identified. Motor and sensory grossly within normal limits. Five out of 5 muscle strength in all muscle groups. Normal speech. A/P Problem List: (1) Diabetes type 1, controlled ICD Code: E10.9 Status: Acute (2) Adjustment disorder with mixed disturbance of emotions and conduct ICD Code: F43.25 Status: Acute (3) Polysubstance abuse ICD Code: F19.10 Status: Acute Assessment and Plan This is a 34-year-old male patient with past medical history which includes hypertension, diabetes mellitus. Patient is currently an inpatient psychiatric unit we were consulted for assistance with medical management including diabetes mellitus. Patient reports he has not had any insulin since his right to the hospital current blood glucose 390. Schizoaffective disorder with depressiontreatment per psychiatry Hypertension improved increase lisinopril 20 mg by mouth daily; will monitor blood pressure trends for further recommendations. ASCVD risk - 69% calculated lifetime risk - recommend lifestyle change, low cholesterol diet - Due to uncontrolled DM and hypertension as comorbid factors, recommend to start statin. Discussed with patient risk and benefits. Agrees with plan. States he was on statin medication previously. - Start atorvastatin 20 mg daily Diabetes mellitus, uncontrolled - unable to comply with diet - Patient counseled on proper diabetic diet eating regularly scheduled meals. - Hemoglobin A1c 9.1 - Continue 5 units prandial insulin. - Continue Levemir 20 units twice a day continue to monitor Accu-Cheks before meals at bedtime with sliding scale insulin coverage. - Encourage oral hydration Tobacco abuse, cessation counseling. nicotinic patch DVT prophylaxispatient ambulatory Written by Gregoria Colon, acting as scribe for Dr. Jimenez on 10/09/16 at 11: 54. The documentation accurately reflects the work performed [id number] by me on at 18:23. Problem Qualifiers (1) Diabetes type 1, controlled: Qualified Code: E10.9 - Controlled diabetes mellitus type 1 without complications Gregoria Tapia Oct 09, 2016 15:12 Jay Jimenez MD Oct 10, 2016 18:23
[2016-10-09] MEDS ORDERED: NOVOLOGP2 SQ (15:35)
[2016-10-09] MEDS ORDERED: LISI-515 PO (15:35)
[2016-10-09] MEDS ORDERED: LIPI20TA PO (15:35)
[2016-10-09] MEDS ORDERED: LEVEMIR SQ (15:35)
[2016-10-09] MEDS ORDERED: BIOM30MI (15:37)
[2016-10-09] MEDS ORDERED: INSU1MIS15 (15:37)
[2016-10-09] MEDS ORDERED: LANCETS1 MI1 (15:37)
[2016-10-09] MEDS ORDERED: GLUCKIT15 (15:37)
[2016-10-09] MEDS ORDERED: GLUCTES12 (15:37)
[2016-10-09] MEDS ORDERED: ATORVASTATIN 20 MG TAB PO SCH (21:00)
== END 2016-10-09 16:30 | disposition home or self-care (01) | DRG 951 ==
LOC: NEPJ 17:58 → NEDA 10-04 08:28 → H270 10-04 10:57
PROVIDERS: ADMIT Psychiatry & Neurology Psychiatry; ATTEND Psychiatry & Neurology Psychiatry
DX: Z76.5 Malingerer [conscious simulation] (principal); E10.65 Type 1 diabetes mellitus with hyperglycemia; I10 Essential (primary) hypertension; Z79.4 Long term (current) use of insulin; F43.29 Adjustment disorder with other symptoms; Z59.0 Homelessness; F17.210 Nicotine dependence, cigarettes, uncomplicated; F19.10 Other psychoactive substance abuse, uncomplicated; E78.5 Hyperlipidemia, unspecified; F12.90 Cannabis use, unspecified, uncomplicated; Z72.89 Other problems related to lifestyle
CPT/HCPCS: 80048; 80053; 80061; 80307; 80320; 82948; 83036; 85025; 96372; J1815; Q0163